=== PATIENT | male | born 1950 | race Caucasian/White ===

== ENCOUNTER 2018-01-23 17:19 | Emergency (ER) | payer MEDICARE, OTHER ==
[~2018-01-23] VITALS: Ht 177.8 cm; Wt 72.6 kg
[~2018-01-23 17:19] MED LIST: Crutch1 EACH MISC; Multivitamin1 EAC1 PO; Norco 5-325 Ta1 EACH PO; Roxicodone5 MG PO; VITAMIN D PO
[2018-01-23] MEDS ORDERED: Zithromax250 MG PO (18:27)
[2018-01-23] MEDS ORDERED: ALBU90OI INH (18:27)
[2018-01-23] MEDS ORDERED: BENZ100A PO (18:27)
[2018-01-23] MEDS ORDERED: Prednisone20 MG PO (18:27)
[2018-07-10] MEDS ORDERED: Multivitamin1 EAC1 PO (13:26)
== END 2018-01-23 18:30 | disposition home or self-care (01) ==
LOC: ER 17:19
DX: R05 Cough (principal); Z87.891 Personal history of nicotine dependence
CPT/HCPCS: 71046; 94640; 99284

== ENCOUNTER 2018-07-17 11:17 | Day surgery (SDC) | payer MEDICARE, OTHER ==
[~2018-07-17] VITALS: Ht 177.8 cm; Wt 73.2 kg
[~2018-07-17 11:17] MED LIST changes: +ALBU90OI INH; +BENZ100A PO; +Prednisone20 MG PO; +Zithromax250 MG PO
== END 2018-07-17 14:13 | disposition home or self-care (01) ==
LOC: ORSCSDS 11:17
PROVIDERS: Internal Medicine Gastroenterology
PROC: 0DB68ZX Excision of Stomach, Via Natural or Artificial Opening Endoscopic, Diagnostic (ICD-10-PCS; principal; 2018-07-17 13:00)
PROC: 0DBN8ZX Excision of Sigmoid Colon, Via Natural or Artificial Opening Endoscopic, Diagnostic (ICD-10-PCS; principal; 2018-07-17 13:00)
PROC: 0DBM8ZX Excision of Descending Colon, Via Natural or Artificial Opening Endoscopic, Diagnostic (ICD-10-PCS; principal; 2018-07-17 13:00)
PROC: 0DBP8ZX Excision of Rectum, Via Natural or Artificial Opening Endoscopic, Diagnostic (ICD-10-PCS; principal; 2018-07-17 13:00)
DX: Z13.810 Encounter for screening for upper gastrointestinal disorder (principal); I85.00 Esophageal varices without bleeding; K20.9 Esophagitis, unspecified; K22.2 Esophageal obstruction; K44.9 Diaphragmatic hernia without obstruction or gangrene; D12.4 Benign neoplasm of descending colon; K62.82 Dysplasia of anus; A63.0 Anogenital (venereal) warts; K64.8 Other hemorrhoids; K57.30 Diverticulosis of large intestine without perforation or abscess without bleeding; B18.2 Chronic viral hepatitis C; Z12.11 Encounter for screening for malignant neoplasm of colon; K70.30 Alcoholic cirrhosis of liver without ascites
CPT/HCPCS: 88305; 88342; J1980

== ENCOUNTER 2019-07-18 08:59 | Day surgery (SDC) | payer MEDICARE, OTHER ==
[~2019-07-18] VITALS: Ht 177.8 cm; Wt 77.0 kg
[~2019-07-18 08:59] MED LIST changes: +Aerochamber1 EACH INH
--- NOTE | 2019-07-18 12:57 | NUR ---
PT VERBALIZED UNDERSTANDING OF WRITTEN AND VERBAL D/C INST. -BLEEDING OR SWELLING L LEG. IV REMOVED.
[2019-08-16] MEDS ORDERED: ATOR20 PO (14:55)
[2019-08-16] MEDS ORDERED: IBUP400 PO (14:56)
== END 2019-07-18 22:37 | disposition home or self-care (01) ==
LOC: MHTC 08:59
DX: I87.2 Venous insufficiency (chronic) (peripheral) (principal); I83.92 Asymptomatic varicose veins of left lower extremity; K70.30 Alcoholic cirrhosis of liver without ascites; Z87.19 Personal history of other diseases of the digestive system
CPT/HCPCS: 36415; 36466; 36475; 82105; 99152; C1888; C1894; J1644; J2250; J3010; J7030; J7040

== ENCOUNTER 2021-12-28 08:56 | Day surgery (SDC) | payer MEDICARE, OTHER ==
[~2021-12-28] VITALS: Ht 177.8 cm; Wt 79.3 kg
[~2021-12-28 08:56] MED LIST changes: +ATOR20 PO; +IBUP400 PO
[2021-12-28] MEDS ORDERED: Prinivil10 MG (09:12)
== END 2021-12-28 10:44 | disposition home or self-care (01) ==
LOC: ORSCSDS 08:56
PROVIDERS: Student in an Organized Health Care Education/Training Program
PROC: 0DB68ZX Excision of Stomach, Via Natural or Artificial Opening Endoscopic, Diagnostic (ICD-10-PCS; principal; 2021-12-28 10:15)
PROC: 0DB48ZX Excision of Esophagogastric Junction, Via Natural or Artificial Opening Endoscopic, Diagnostic (ICD-10-PCS; principal; 2021-12-28 10:15)
DX: K70.30 Alcoholic cirrhosis of liver without ascites (principal); Z13.810 Encounter for screening for upper gastrointestinal disorder; Z86.19 Personal history of other infectious and parasitic diseases; K20.90 Esophagitis, unspecified without bleeding; K22.2 Esophageal obstruction; K76.6 Portal hypertension; I10 Essential (primary) hypertension; K21.9 Gastro-esophageal reflux disease without esophagitis; K44.9 Diaphragmatic hernia without obstruction or gangrene; Z87.891 Personal history of nicotine dependence; Z79.899 Other long term (current) drug therapy
CPT/HCPCS: 88305; 88312; 88342; J2704; J7120

== ENCOUNTER 2022-05-28 11:16 | Emergency (ER) | payer MEDICARE, OTHER ==
[~2022-05-28] VITALS: Ht 177.8 cm; Wt 74.8 kg
[~2022-05-28 11:16] MED LIST changes: +Prinivil10 MG
[2022-05-28 12:41] LABS: Influenza A, PCR NEGATIVE (NEGATIVE); Influenza B, PCR NEGATIVE (NEGATIVE); Resp Syncytial Virus, PCR NEGATIVE (NEGATIVE); SARS-Cov-2 (COVID-19) PCR, MMC NEGATIVE (NEGATIVE)
[2022-05-28] MEDS ORDERED: Tessalon200 MG PO (13:12)
[2022-05-28] MEDS ORDERED: Prednisone50 MG PO (13:12)
[2022-05-28] MEDS ORDERED: AMOCLA875 PO (13:12)
== END 2022-05-28 13:35 | disposition home or self-care (01) ==
LOC: ER 11:16
PROVIDERS: Physician Assistant
DX: J40 Bronchitis, not specified as acute or chronic (principal); Z20.822 Contact with and (suspected) exposure to COVID-19; Z87.891 Personal history of nicotine dependence; Z86.19 Personal history of other infectious and parasitic diseases
CPT/HCPCS: 0241U; 71045